=== PATIENT | male | born 1945 | race Caucasian/White ===

== ENCOUNTER 2017-06-02 14:10 | Inpatient (IN) | payer OTHER, BC ==
--- NOTE | 2017-06-02 14:31 | PDOC ---
History of Present Illness - General Stated Complaint: Syncope/Near Syncope Time Seen by Provider: 06/02/17 14:28 - History of Present Illness Initial Comments: 71 yo M with h/o HTN, IVDA, and methadone use ( 30+ ) years who arrives with syncopal event. Patient experienced episode of lightheadedness one hour [employer]. Reports sitting down and feeling nauseas with two episodes of non biliary, non bloody emesis, and diaphoresis prior to experiencing unwitnessed "fainting episode," with LOC. Daughter reports pt. falling through the table and foaming out the mouth, when his sister walked in the room and saw him laying on the floor. Does not recall duration of LOC. Reports waking up with cont'd nasuea. Denies excitement, startle response, increased heart rate, or neck constriction prior to event.Denies precipitating factors or alleviating factors. Denies F/C, CP, cough, palpitations, SOB, vertigo,vision change, RAMIREZ, weakness, sensory changes, urinary complaints, BPR, diarrhea, constipation, or abdominal pain. Tobacco use 30+ years (1/2 ppd), but reports smoking cessation 3 months ago. Denies alcohol use or IV drug use, although family reports pt. lives alone and continues to use IV drugs. Patient tachycardic at bedside, but denies h/o DVT/PE , leg pain, leg swelling, hemoptysis, pleuritic chest pain, recent travel/ immobilization, h/o malignancy, recent trauma or surgery, coagulopathy. Past History - Past Medical History Allergies/Adverse Reactions: Allergies Allergy/AdvReac Type Severity Reaction Status Date / Time No Known Allergies Allergy Verified 06/02/17 14:34 Home Medications: Ambulatory Orders Methadone [Dolophine -] 50 mg PO DAILY 04/14/16 HTN: Yes - Suicide/Smoking/Psychosocial Hx Smoking History: Current every day smoker Have you smoked in the past 12 months: Yes Number of Cigarettes Smoked Daily: 10 'Breaking Loose' booklet given: 04/14/16 Hx Alcohol Use: No Drug/Substance Use Hx: Yes (HEROIN) Substance Use Type: Heroin Review of Systems - Review of Systems Comments:: 06/02/17 14:31 GENERAL/CONSTITUTIONAL: No fever or chills. No weakness. HEAD, EYES, EARS, NOSE AND THROAT: No change in vision. No ear pain or discharge. No sore throat.- CARDIOVASCULAR: No chest pain or shortness of breath RESPIRATORY: No cough, wheezing, or hemoptysis. GASTROINTESTINAL: + nausea, without vomiting. No diarrhea or constipation. GENITOURINARY: No dysuria, frequency, or change in urination. MUSCULOSKELETAL: No joint or muscle swelling or pain. No neck or back pain. SKIN: No rash NEUROLOGIC: + lightheadedness. No headache, vertigo, loss of consciousness, or change in strength/sensation. ENDOCRINE: No increased thirst. No abnormal weight change HEMATOLOGIC/LYMPHATIC: No anemia, easy bleeding, or history of blood clots. ALLERGIC/IMMUNOLOGIC: No hives or skin allergy. *Physical Exam - Physical Exam Comments: 06/02/17 14:31 GENERAL: Awake, alert, and fully oriented, in no acute distress HEAD: No signs of trauma, normocephalic, atraumatic EYES: Miotic/pinpoint pupils BL. EOMI, sclera anicteric, conjunctiva clear ENT: Auricles normal inspection, hearing grossly normal, nares patent, oropharynx clear without exudates. Moist mucosa NECK: Normal ROM, supple, no lymphadenopathy, JVD, or masses LUNGS: Diminished breath sounds at lung bases. No distress, speaks full sentences, clear to auscultation bilaterally HEART: irregular rate and rhythm, normal S1 and S2, no murmurs, rubs or gallops , peripheral pulses normal and equal bilaterally. ABDOMEN: Soft, nontender, normoactive bowel sounds. No guarding, no rebound. No masses EXTREMITIES : LE edema ( trace) Normal inspection, Normal range of motion. No clubbing or cyanosis. NEUROLOGICAL: Cranial nerves II through XII grossly intact. Normal speech, gait not assessed, no focal sensorimotor deficits SKIN: Warm, Dry, normal turgor, no rashes or lesions noted. ED Treatment Course - LABORATORY CBC & Chemistry Diagram: 06/02/17 15:20 06/02/17 15:20 Medical Decision Making - Medical Decision Making 06/02/17 15:19 71 yo M with h/o HTN, IVDA, and methadone use ( 30+ ) years who arrives EMS with syncopal event one hour [employer]. Reports sitting down and feeling nasueas with two episodes of non biliary, non bloody emesis, and diaphoresis prior to experiencing unwitnessed "fainting episode," with LOC. Pt. sister reports walking in room with patient laying on floor and foaming out of mouth. Patient denies urinary incontinence, tongue biting, or convulsions. Does not recall duration of LOC. Reports waking up with cont'd nausea.Denies precipitating factors or alleviating factors. Denies F/C, CP, cough, palpitations, SOB, vertigo,vision change, RAMIREZ, weakness, sensory changes, urinary complaints, BPR, diarrhea, constipation, or abdominal pain. Tobacco use 30+ years (1/2 ppd), but reports smoking cessation 3 months ago. Denies alcohol use or IV drug use. Patient tachycardic at bedside~120. Physical exam reveals increased HR~116 and pinpoint pupils. Patient with sinus tachycardia, but denies h/o DVT/PE, leg pain , leg swelling, hemoptysis, pleuritic chest pain, recent travel/immobilization, h/o malignancy, recent trauma or surgery, coagulopathy. Low-mod risk PE. Will also consider hyperthyroidism given s/s. Possible polysubstance abuse. Will also assess for causes of seizure vs. cardiogenic cause of syncope, such as underlying arrythmia. ED Course: CBC, CMP, PT/INR, UA, Urine Tox, D-Dimer, TSH EKG, CXR CT HEAD, CT C-SPINE Zofran, Pepcid, NS EKG: Sinus tachycardia with absent ROSALVA, STD, or TWI. No interval duration change or axis deviation. 06/02/17 15:43 Pt. refuses 1L NS, and refuses blood draw for alcohol. Patient repeatedly states he is going home. 1600 Patient actively Tonic Clonic seizing lasting more than 5 minutes . 1 mg Ativan given. Aborted seizure. Pt. lethargic 06/02/17 16:24 D-Dimer: 6681 UA: neg 06/02/17 16:25 Glucose 116 CK 217 06/02/17 16:28 06/02/17 16:48 CT HEAD: No acute intracranial pathology Pt. more arousable. CXR: No acute dz. 1 mg ativan 06/02/17 17:11 Alcohol less than 5.0 Utox: + Methadone. 06/02/17 17:21 Levofloxacin 800 mg. CTA: RUL infiltrate, aspiration. 06/02/17 17:50 Patient admitted to med/surg inpt. [facility] *DC/Admit/Observation/Transfer Diagnosis at time of Disposition: Seizure - Discharge Dispostion Condition at time of disposition: Stable Admit: Yes - Referrals - Patient Instructions - Post Discharge Activity
--- NOTE | 2017-06-02 15:05 | PDOC ---
Attending Attestation - Resident Resident Name: Arun Lee - ED Attending Attestation I have performed the following: I have examined & evaluated the patient, The case was reviewed & discussed with the resident, I agree w/resident's findings & plan, Exceptions are as noted - Critical Care Time Total Critical Care Time: 30 Critical Care Statement: The care of this patient involved high complexity decision making to prevent further life threatening deterioration of the patient 's condition and/or to evaluate & treat vital organ system(s) failure or risk of failure. - Medical Decision Making 06/02/17 15:05 I, Dr. Christina Cheema, DO, attest that this document has been prepared under my direction and personally reviewed by me in its entirety. I further attest, that it accurately reflects all work, treatment, procedures and medical decision -making performed by me. 06/02/17 15:40 a/p: 71yo male with syncope and vomiting x 2 -concern given syncopal episode, lightheaded feeling, and n/v x 2 -will check labs, trops, dimer, ekg, cxr, lipase on methadone hx of ivda denies taking any meds other than his methadone c/o nausea at this time will medicate, give ivf hydration pt already stating he wants to sign out AMA and leave agreeable to stay for labs per the daughters discussion with the resident, pt has a hx of signing out AMA from ERs 06/02/17 16:05 pt with seizure episode in the ED ativan given stat to head ct <Christina Cheema - Last Filed: 06/02/17 16:05> - HPI HPI: 06/02/17 17:23 Patient is a 71 year old male with a significant past medical history of HTN, Alcohol dependence, substance abuse, who presents to the ED with complaints of weakness, s/p syncope that occured 1 hour prior to ED arrival. Patient reports feeling nauseous suddenly this afternoon while at home. He reports experiencing 2 episodes of vomiting before experiencing an episode of unwitnessed fainting with loss of consciousness. Patient does not recall if he hit his head secondary to fainting episode and is unaware of how long he was unconsciousness. He reports daughter called EMS to have him taken to the ED for further evaluation. Denies chest pain, Sob. Denies nausea, vomiting. Denies fevers, chills. Denies blurred vision, headache. Denies any other symptoms. Allergies: None Social history: Current smoker. Current drinker. Former Heroin use. Surgical history: None PMD: None - Physicial Exam PE: 06/02/17 17:23 GENERAL: Awake, alert, and fully oriented, in no acute distress HEAD: No signs of trauma EYES: +Extraocular motion makes light headed PERRLA, EOMI, sclera anicteric, conjunctiva clear ENT: Auricles normal inspection, hearing grossly normal, nares patent, oropharynx clear without exudates. Moist mucosa NECK: Normal ROM, supple, no lymphadenopathy, JVD, or masses LUNGS: +Lung sounds diminished in bases bilaterally. Breath sounds equal,. No wheezes, and no crackles HEART: +Tachycardic. normal S1 and S2, no murmurs, rubs or gallops ABDOMEN: +Abdomen palpation reproduces nausea. Soft, nontender, normoactive bowel sounds. No guarding, no rebound. No masses EXTREMITIES: +Trace edema in lower extremities bilaterally. Normal range of motion,. No clubbing or cyanosis. No cords, erythema, or tenderness NEUROLOGICAL: Cranial nerves II through XII grossly intact. Normal speech, normal gait SKIN: Warm, Dry, normal turgor, no rashes or lesions noted. - Medical Decision Making 06/02/17 17:23 Documentation prepared by Pascual Hough, acting as medical microbiologist for Christina Cheema DO, MD/. <Pascual Hough - Last Filed: 06/02/17 17:23> Heart Score/ECG Review - ECG Intrepretation Comment:: 06/02/17 15:44 pt with seizure activity in the ED given ativan 1mg tonic clonic seizure frothing at the mouth stat to head ct <Christina Cheema - Last Filed: 06/02/17 16:05>
[2017-06-02 15:31] LABS: URINE APPEARANCE CLEAR; URINE BILIRUBIN NEGATIVE (NEGATIVE); URINE BLOOD 1+ (NEGATIVE); URINE COLOR STRAW; URINE GLUCOSE (UA) NEGATIVE (NEGATIVE); URINE KETONE NEGATIVE (NEGATIVE); URINE LEUK ESTERASE NEGATIVE (NEGATIVE); URINE NITRITE NEGATIVE (NEGATIVE); URINE PROTEIN NEGATIVE (NEGATIVE); URINE UROBILINOGEN NEGATIVE mg/dL (0.2-1.0)
[2017-06-02 15:31] LABS: BASO % 0.3 % (0-2.0); EOS % 0.4 % (0-4.5); HEMATOCRIT 46.2 % (35.4-49); HEMOGLOBIN 15.5 GM/dL (11.7-16.9); LYMPH % 3.5 % (8-40); MCH 31.2 pg (25.7-33.7); MCHC 33.6 g/dl (32.0-35.9); MEAN CELL VOLUME 92.9 fl (80-96); MEAN PLT VOLUME 7.3 fl (7.5-11.1); MONO % 6.4 % (3.8-10.2); NEUT % 89.4 % (42.8-82.8); PLATELET COUNT 202 K/MM3 (134-434); RBC 4.97 M/mm3 (4.00-5.60); WHITE BLOOD COUNT 9.7 K/mm3 (4.0-10.0)
[2017-06-02] MEDS ORDERED: ONDANSETRON 4 MG/2 ML VIAL IVPUSH ONE (15:34)
[2017-06-02] MEDS ORDERED: SODIUM CHLORIDE 0.9% 1000 ML INFUS.BAG IV ONE ×2 (15:34→16:23)
[2017-06-02] MEDS ORDERED: FAMOTIDINE 20 MG/50 ML IVPB 20 MG/50 ML MG IVPB ONE ×2 (15:34→15:40)
[2017-06-02] MEDS ORDERED: ONDANSETRON 4 MG/2 ML VIAL ONE (15:40)
[2017-06-02 15:42] LABS: COCAINE, UR NEGATIVE ng/ml (CUTOFF=300); OPIATES, URI NEGATIVE ng/ml (CUTOFF=300); PHENCYCLIDINE,URINE NEGATIVE ng/ml (CUTOFF=25); URINE AMPHETAMINES NEGATIVE ng/ml (CUTOFF=500); URINE BARBITURATES NEGATIVE ng/ml (CUTOFF=200); URINE BENZODIAZEPINES NEGATIVE ng/ml (CUTOFF=200)
[2017-06-02 15:43] LABS: METHADONE, UR POSITIVE ng/ml (CUTOFF=300)
[2017-06-02 15:44] LABS: INR 1.02 (0.82-1.09); PROTHROMBIN TIME (PATIENT) 11.5 SEC (9.98-11.88)
[2017-06-02 15:45] LABS: URINE HYALINE CAST 3 /lpf; URINE MUCUS RARE
[2017-06-02 15:50] LABS: CHLORIDE 101 mmol/L (98-107); POTASSIUM 3.8 mmol/L (3.5-5.1); SODIUM 138 mmol/L (136-145)
[2017-06-02 15:59] LABS: ALBUMIN 4.1 g/dl (3.4-5.0); ANION GAP 13 (8-16); BILIRUBIN,TOTAL 0.7 mg/dL (0.2-1.0); BLOOD UREA NITROGEN 15 mg/dL (7-18); CALCIUM 8.5 mg/dL (8.5-10.1); CO2 24 mmol/L (21-32); CREATININE 1.1 mg/dL (0.7-1.3); GLUCOSE,RANDOM 116 mg/dL (74-106); SGOT/AST 19 U/L (15-37); SGPT/ALT 27 U/L (12-78); TOT PROT 7.1 g/dl (6.4-8.2)
[2017-06-02] MEDS ORDERED: HEMOQUE TEST 1 EACH EACH ONE (15:59)
[2017-06-02 16:08] LABS: ALK PHOS 97 U/L (45-117)
--- NOTE | 2017-06-02 19:06 | HP ---
CHIEF COMPLAINT: Syncope PCP: None HISTORY OF PRESENT ILLNESS: 71 year-old male with a PMH significant for HTN, IVDA, and methadone dependency x 30 years, who presented to the ED for evaluation for a syncopal episode that occurred one hour prior to arrival. Patient reported sitting down and feeling nauseous with two episodes of non biliary, non bloody emesis. He was also diaphoretic. He then lost consciousness. Patient's sister found patient on the floor "foaming at the mouth." On arrival to ED, patient was tachycardic to 116 with pinpoint pupils. About 45 minutes after arrival, tonic-clonic seizure activity was observed lasting more than 5 minutes. Ativan 1mg x 1 was administered and the seizure aborted. At the time of admission, patient's family was not present to provide history and this information is taken from the chart. Patient adamantly denies alcohol use or IV drug use for the past three years. ER course was notable for: (1) CT head: no acute pathology (2) Ativan 1mg x 2; NS 1L x 2; levofloxacin 750mg x 1 (risk of aspiration pneumonia) Recent Travel: No PAST MEDICAL HISTORY: Hypertension IVDA Methadone dependency PAST SURGICAL HISTORY: None reported Social History: Smoking: quit 3 months ago; 30+ years Alcohol: denies Drugs: patient says last IV drug use (skin popping heroin) was 3 years ago; family says actively using Family History: Allergies No Known Allergies Allergy (Verified 06/02/17 14:34) HOME MEDICATIONS: Home Medications Medication Instructions Recorded Methadone [Dolophine -] 50 mg PO DAILY 04/14/16 REVIEW OF SYSTEMS CONSTITUTIONAL: Absent: fever, chills, diaphoresis, generalized weakness, malaise, loss of appetite, weight change HEENT: Absent: rhinorrhea, nasal congestion, throat pain, throat swelling, difficulty swallowing, mouth swelling, ear pain, eye pain, visual changes CARDIOVASCULAR: Absent: chest pain, syncope, palpitations, irregular heart rate, lightheadedness , peripheral edema RESPIRATORY: Absent: cough, shortness of breath, dyspnea with exertion, orthopnea, wheezing, stridor, hemoptysis GASTROINTESTINAL: Absent: abdominal pain, abdominal distension, nausea, vomiting, diarrhea, constipation, melena, hematochezia GENITOURINARY: Absent: dysuria, frequency, urgency, hesitancy, hematuria, flank pain, genital pain MUSCULOSKELETAL: Absent: myalgia, arthralgia, joint swelling, back pain, neck pain SKIN: Absent: rash, itching, pallor HEMATOLOGIC/IMMUNOLOGIC: Absent: easy bleeding, easy bruising, lymphadenopathy, frequent infections ENDOCRINE: Absent: unexplained weight gain, unexplained weight loss, heat intolerance, cold intolerance NEUROLOGIC: Absent: headache, focal weakness or paresthesias, dizziness, unsteady gait, seizure, mental status changes, bladder or bowel incontinence PSYCHIATRIC: Absent: anxiety, depression, suicidal or homicidal ideation, hallucinations. PHYSICAL EXAMINATION Vital Signs - 24 hr 06/02/17 06/02/17 06/02/17 14:30 14:47 15:39 Temperature 99.4 F Pulse Rate 124 H Pulse Rate [ 120 H Apical] Respiratory 20 18 Rate Blood Pressure 142/88 Blood Pressure 136/77 [Right Arm] O2 Sat by Pulse 95 95 95 Oximetry (%) 06/02/17 06/02/17 16:30 18:01 Temperature Pulse Rate Pulse Rate [ 120 H 120 H Apical] Respiratory 18 20 Rate Blood Pressure Blood Pressure 128/77 134/82 [Right Arm] O2 Sat by Pulse 98 98 Oximetry (%) GENERAL: Somnolent, arousable for brief periods. HEAD: Normal with no signs of trauma. EYES: Pupils equal, round and reactive to light, extraocular movements intact, sclera anicteric, conjunctiva clear. No lid lag. EARS, NOSE, THROAT: Ears normal, nares patent, oropharynx clear without exudates. Moist mucous membranes. NECK: Normal range of motion, supple without lymphadenopathy, JVD, or masses. LUNGS: Breath sounds equal, clear to auscultation bilaterally. No wheezes, and no crackles. No accessory muscle use. HEART: Regular rate and rhythm, normal S1 and S2 ABDOMEN: Soft, nontender, not distended, hypoactive bowel sounds, no guarding, no rebound UPPER EXTREMITIES: 2+ pulses, warm, well-perfused. No cyanosis. No clubbing. No peripheral edema. LOWER EXTREMITIES: 2+ pulses, warm, well-perfused. No calf tenderness. No peripheral edema. NEUROLOGICAL: Unable to assess due to somnolence Laboratory Results - last 24 hr 06/02/17 06/02/17 06/02/17 15:06 15:06 15:15 WBC RBC Hgb Hct MCV MCH MCHC RDW Plt Count MPV Neutrophils % Lymphocytes % Monocytes % Eosinophils % Basophils % PT with INR INR D-Dimer 6681 H Sodium Potassium Chloride Carbon Dioxide Anion Gap BUN Creatinine Creat Clearance w eGFR POC Glucometer Random Glucose Lactic Acid Calcium Total Bilirubin AST ALT Alkaline Phosphatase Creatine Kinase Creatine Kinase Index CK-MB (CK-2) Troponin I Total Protein Albumin TSH Urine Color Straw Urine Appearance Clear Urine pH 5.0 D Ur Specific [place] 1.012 Urine Protein Negative Urine Glucose (UA) Negative Urine Ketones Negative Urine Blood 1+ H Urine Nitrite Negative Urine Bilirubin Negative Urine Urobilinogen Negative Ur Leukocyte Esterase Negative Urine WBC (Auto) None Urine RBC (Auto) 1 Hyaline Casts 3 Urine Mucus Rare Opiates Screen Negative Methadone Screen Positive Barbiturate Screen Negative Phencyclidine Screen Negative Ur Amphetamines Screen Negative MDMA (Ecstasy) Screen Negative Benzodiazepines Screen Negative Cocaine Screen Negative U Marijuana (THC) Screen Negative Alcohol, Quantitative Blood Type Antibody Screen 06/02/17 06/02/17 06/02/17 15:20 15:20 15:20 WBC 9.7 D RBC 4.97 Hgb 15.5 Hct 46.2 MCV 92.9 MCH 31.2 MCHC 33.6 RDW 13.0 Plt Count 202 D MPV 7.3 L Neutrophils % 89.4 H Lymphocytes % 3.5 L Monocytes % 6.4 Eosinophils % 0.4 Basophils % 0.3 PT with INR 11.50 INR 1.02 D-Dimer Sodium 138 Potassium 3.8 Chloride 101 Carbon Dioxide 24 Anion Gap 13 BUN 15 Creatinine 1.1 Creat Clearance w eGFR > 60 POC Glucometer Random Glucose 116 H Lactic Acid Calcium 8.5 Total Bilirubin 0.7 AST 19 ALT 27 Alkaline Phosphatase 97 Creatine Kinase 217 Creatine Kinase Index 1.2 CK-MB (CK-2) 2.657 Troponin I 0.04 Total Protein 7.1 Albumin 4.1 TSH 0.84 Urine Color Urine Appearance Urine pH Ur Specific [place] Urine Protein Urine Glucose (UA) Urine Ketones Urine Blood Urine Nitrite Urine Bilirubin Urine Urobilinogen Ur Leukocyte Esterase Urine WBC (Auto) Urine RBC (Auto) Hyaline Casts Urine Mucus Opiates Screen Methadone Screen Barbiturate Screen Phencyclidine Screen Ur Amphetamines Screen MDMA (Ecstasy) Screen Benzodiazepines Screen Cocaine Screen U Marijuana (THC) Screen Alcohol, Quantitative Blood Type Antibody Screen 06/02/17 06/02/17 06/02/17 15:20 15:25 16:00 WBC RBC Hgb Hct MCV MCH MCHC RDW Plt Count MPV Neutrophils % Lymphocytes % Monocytes % Eosinophils % Basophils % PT with INR INR D-Dimer Sodium Potassium Chloride Carbon Dioxide Anion Gap BUN Creatinine Creat Clearance w eGFR POC Glucometer 128.39675 Random Glucose Lactic Acid Calcium Total Bilirubin AST ALT Alkaline Phosphatase Creatine Kinase Creatine Kinase Index CK-MB (CK-2) Troponin I Total Protein Albumin TSH Cancelled Urine Color Urine Appearance Urine pH Ur Specific [place] Urine Protein Urine Glucose (UA) Urine Ketones Urine Blood Urine Nitrite Urine Bilirubin Urine Urobilinogen Ur Leukocyte Esterase Urine WBC (Auto) Urine RBC (Auto) Hyaline Casts Urine Mucus Opiates Screen Methadone Screen Barbiturate Screen Phencyclidine Screen Ur Amphetamines Screen MDMA (Ecstasy) Screen Benzodiazepines Screen Cocaine Screen U Marijuana (THC) Screen Alcohol, Quantitative Blood Type O POSITIVE Antibody Screen Negative 06/02/17 06/02/17 16:25 17:30 WBC RBC Hgb Hct MCV MCH MCHC RDW Plt Count MPV Neutrophils % Lymphocytes % Monocytes % Eosinophils % Basophils % PT with INR INR D-Dimer Sodium Potassium Chloride Carbon Dioxide Anion Gap BUN Creatinine Creat Clearance w eGFR POC Glucometer Random Glucose Lactic Acid 3.2 H* Calcium Total Bilirubin AST ALT Alkaline Phosphatase Creatine Kinase Creatine Kinase Index CK-MB (CK-2) Troponin I Total Protein Albumin TSH Urine Color Urine Appearance Urine pH Ur Specific [place] Urine Protein Urine Glucose (UA) Urine Ketones Urine Blood Urine Nitrite Urine Bilirubin Urine Urobilinogen Ur Leukocyte Esterase Urine WBC (Auto) Urine RBC (Auto) Hyaline Casts Urine Mucus Opiates Screen Methadone Screen Barbiturate Screen Phencyclidine Screen Ur Amphetamines Screen MDMA (Ecstasy) Screen Benzodiazepines Screen Cocaine Screen U Marijuana (THC) Screen Alcohol, Quantitative < 5.0 Blood Type Antibody Screen ASSESSMENT/PLAN: 71 year-old male with a PMH significant for HTN, IVDA, and methadone dependency. Seizure --witnessed tonic-clonic activty in ED --unclear if this is a seizure provoked by alcohol or drug use; serum alcohol level is negative and utox is positive only for methadone; patient denies alcohol or IVDU for past 3 years --this may be a first-time seizure --ativan PRN --neurology consult IV Heroin abuse Methadone dependency --will need to verify methadone provider and dose Alcohol abuse --start librium taper Multilobar pneumonia --infiltrates seen on CT --possible aspiration --alley pearson --ID consult Visit type - Emergency Visit Emergency Visit: Yes ED Registration Date: 06/02/17 Care time: The patient presented to the Emergency Department on the above date and was hospitalized for further evaluation of their emergent condition. - New Patient This patient is new to me today: Yes Date on this admission: 06/03/17 - Critical Care Critical Care patient: No
[2017-06-02] MEDS ORDERED: chlordiazePOXIDE HCL 25 MG CAPSULE PO PRN (19:23)
[2017-06-02] MEDS ORDERED: chlordiazePOXIDE HCL 25 MG CAPSULE PO ONE (19:23)
[2017-06-02] MEDS ORDERED: LORazepam 2 MG/ML SDV VIAL IVPUSH ONE (19:30)
[2017-06-02] MEDS ORDERED: DEXTROSE 5%-NORMAL SALINE 1,000 ML IV SCH (19:30)
[2017-06-02] MEDS ORDERED: LORazepam 2 MG/ML SDV VIAL ONE (20:49)
[2017-06-02] MEDS ORDERED: chlordiazePOXIDE HCL 25 MG CAPSULE ONE (20:50)
[2017-06-02] MEDS ORDERED: VANCOMYCIN 1,250 MG in DEXTROSE 5%-WATER - 250 ML IVPB ONE (22:30)
[2017-06-02] MEDS ORDERED: PANTOPRAZOLE 40 MG TABLET (FP) ONE (22:44)
[2017-06-02] MEDS ORDERED: PIPERACILLIN/TAZOB 3.375 GM 3.375 GM/50 ML BAG IVPB ONE (22:45)
[2017-06-02] MEDS: PANTOPRAZOLE 40 MG TABLET (FP) PO SCH (22:57)
[2017-06-02] MEDS: PIPERACILLIN/TAZOB 3.375 GM 3.375 GM in DEXTROSE 5%-WATER - 100 ML IVPB SCH (22:57)
[2017-06-03] MEDS ORDERED: chlordiazePOXIDE HCL 25 MG CAPSULE ONE (00:10)
[2017-06-03] MEDS: chlordiazePOXIDE HCL 25 MG CAPSULE PO SCH ×3 (00:13→10:17)
--- NOTE | 2017-06-03 01:17 | FALL ---
Fall Exam - Event Witnessed fall: No Location of Fall: ED Fall from: Stretcher - Pre-Fall Fall Risk: At Risk Mental Status: Lethargic Current Medications: Current Medications Generic Name Dose Route Start Last Admin Trade Name Freq PRN Reason Stop Dose Admin Chlordiazepoxide HCl 50 mg 06/02/17 23:00 06/03/17 00:13 Librium - PO 06/03/17 17:01 50 mg [id number] ROXANNE Administration Chlordiazepoxide HCl 25 mg 06/03/17 23:00 Librium - PO 06/04/17 17:01 [id number] ROXANNE Chlordiazepoxide HCl 15 mg 06/04/17 23:00 Librium - PO 06/05/17 17:01 [id number] ROXANNE Chlordiazepoxide HCl 25 mg 06/02/17 19:23 Librium - PO 06/05/17 19:22 Q4H PRN WITHDRAWAL(CONT SUBST) Folic Acid 1 mg 06/03/17 10:00 Folic Acid - PO DAILY ROXANNE Dextrose/Sodium Chloride 1,000 mls @ 83 mls/hr 06/02/17 19:30 06/02/17 21:39 D5-Ns - IV 83 mls/hr ASDIR ROXANNE Administration Vancomycin HCl 1,250 mg/ 250 mls @ 250 mls/hr 06/02/17 22:30 Dextrose IVPB BID [facility] Protocol Piperacillin Sod/Tazobactam 100 mls @ 200 mls/hr 06/02/17 22:30 06/02/17 22: 57 Sod 3.375 gm/ Dextrose IVPB 06/03/17 02:29 200 mls/hr Q8H-IV ROXANNE Administration Methadone HCl 50 mg 06/03/17 06:00 Dolophine - PO DAILY@0600 ROXANNE Pantoprazole Sodium 40 mg 06/02/17 22:00 06/02/17 22:57 Protonix - PO 40 mg BID ROXANNE Administration Piperacillin/Tazobactam/Dextrose 3.375 gm 06/02/17 22:30 Zosyn 3.375gm Ivpb (Premix) IVPB Q8H-IV ROXANNE Thiamine HCl 100 mg 06/03/17 10:00 Vitamin B1 - PO DAILY ROXANNE - Post-Fall Patient Outcome: No Injury Exam Findings: Pt is lethargic, but arousable to verbal, tactile stimulus. HEENT : Atraumatic, Normocephalic. PERRL, Treatment: None Vital Signs: Vital Signs Temperature 98.9 F 06/02/17 19:22 Pulse Rate 110 H 06/02/17 19:22 Respiratory Rate 18 06/02/17 19:22 Blood Pressure 128/88 06/02/17 19:22 O2 Sat by Pulse Oximetry (%) 98 06/02/17 19:22 LOC Post-Fall: Unchanged Identify factors for HIGH RISK for Head Injury: Alcoholic pt w liver dysf
[2017-06-03] MEDS: PIPERACILLIN/TAZOB 3.375 GM 3.375 GM in DEXTROSE 5%-WATER - 100 ML IVPB SCH (02:53)
[2017-06-03 05:01] VITALS: BMI 28.7
[2017-06-03] MEDS ORDERED: METHADONE 40 MG, METHADONE 10 MG PO ONE (06:00)
[2017-06-03] MEDS ORDERED: METHADONE HCL 10 MG TABLET ONE (06:20)
[2017-06-03] MEDS ORDERED: METHADONE HCL 40 MG DISPERSABLE TABLET ONE (06:20)
--- NOTE | 2017-06-03 08:05 | PN ---
Physical Exam: SUBJECTIVE: Patient seen and examined. Wants to sign out AMA. Has refused librium. Has refused morning dose of methadone. Says he wants to go to his methadone program this morning but cannot name the methadone center or the street that it is on. Overnight in ED patient got out of bed and fell (see fall exam). OBJECTIVE: Vital Signs Period Temp Pulse Resp BP Sys/Sun Pulse Ox Last 24 Hr 97.2 F-99.4 F 76-124 18-20 128-154/64-88 95-98 GENERAL: The patient is somnolent. Speech is coherent but mumbled. Falls asleep while talking. LUNGS: +cough; scattered rhonchi HEART: Regular rate and rhythm, S1, S2 ABDOMEN: Soft, nontender, nondistended, normoactive bowel sounds, no guarding, no rebound, no hepatosplenomegaly, no masses. EXTREMITIES: 2+ pulses, warm, well-perfused, no edema. NEUROLOGICAL: Cranial nerves II through XII grossly intact. Normal speech, gait not observed. PSYCH: Normal mood, normal affect. SKIN: Warm, dry, normal turgor, no rashes or lesions noted Laboratory Results - last 24 hr 06/02/17 06/02/17 06/02/17 15:06 15:06 15:15 WBC RBC Hgb Hct MCV MCH MCHC RDW Plt Count MPV Neutrophils % Lymphocytes % Monocytes % Eosinophils % Basophils % PT with INR INR D-Dimer 6681 H Sodium Potassium Chloride Carbon Dioxide Anion Gap BUN Creatinine Creat Clearance w eGFR POC Glucometer Random Glucose Lactic Acid Calcium Total Bilirubin AST ALT Alkaline Phosphatase Creatine Kinase Creatine Kinase Index CK-MB (CK-2) Troponin I Total Protein Albumin TSH Urine Color Straw Urine Appearance Clear Urine pH 5.0 D Ur Specific [place] 1.012 Urine Protein Negative Urine Glucose (UA) Negative Urine Ketones Negative Urine Blood 1+ H Urine Nitrite Negative Urine Bilirubin Negative Urine Urobilinogen Negative Ur Leukocyte Esterase Negative Urine WBC (Auto) None Urine RBC (Auto) 1 Hyaline Casts 3 Urine Mucus Rare Opiates Screen Negative Methadone Screen Positive Barbiturate Screen Negative Phencyclidine Screen Negative Ur Amphetamines Screen Negative MDMA (Ecstasy) Screen Negative Benzodiazepines Screen Negative Cocaine Screen Negative U Marijuana (THC) Screen Negative Alcohol, Quantitative Blood Type Antibody Screen 06/02/17 06/02/17 06/02/17 15:20 15:20 15:20 WBC 9.7 D RBC 4.97 Hgb 15.5 Hct 46.2 MCV 92.9 MCH 31.2 MCHC 33.6 RDW 13.0 Plt Count 202 D MPV 7.3 L Neutrophils % 89.4 H Lymphocytes % 3.5 L Monocytes % 6.4 Eosinophils % 0.4 Basophils % 0.3 PT with INR 11.50 INR 1.02 D-Dimer Sodium 138 Potassium 3.8 Chloride 101 Carbon Dioxide 24 Anion Gap 13 BUN 15 Creatinine 1.1 Creat Clearance w eGFR > 60 POC Glucometer Random Glucose 116 H Lactic Acid Calcium 8.5 Total Bilirubin 0.7 AST 19 ALT 27 Alkaline Phosphatase 97 Creatine Kinase 217 Creatine Kinase Index 1.2 CK-MB (CK-2) 2.657 Troponin I 0.04 Total Protein 7.1 Albumin 4.1 TSH 0.84 Urine Color Urine Appearance Urine pH Ur Specific [place] Urine Protein Urine Glucose (UA) Urine Ketones Urine Blood Urine Nitrite Urine Bilirubin Urine Urobilinogen Ur Leukocyte Esterase Urine WBC (Auto) Urine RBC (Auto) Hyaline Casts Urine Mucus Opiates Screen Methadone Screen Barbiturate Screen Phencyclidine Screen Ur Amphetamines Screen MDMA (Ecstasy) Screen Benzodiazepines Screen Cocaine Screen U Marijuana (THC) Screen Alcohol, Quantitative Blood Type Antibody Screen 06/02/17 06/02/17 06/02/17 15:20 15:25 16:00 WBC RBC Hgb Hct MCV MCH MCHC RDW Plt Count MPV Neutrophils % Lymphocytes % Monocytes % Eosinophils % Basophils % PT with INR INR D-Dimer Sodium Potassium Chloride Carbon Dioxide Anion Gap BUN Creatinine Creat Clearance w eGFR POC Glucometer 128.40312 Random Glucose Lactic Acid Calcium Total Bilirubin AST ALT Alkaline Phosphatase Creatine Kinase Creatine Kinase Index CK-MB (CK-2) Troponin I Total Protein Albumin TSH Cancelled Urine Color Urine Appearance Urine pH Ur Specific [place] Urine Protein Urine Glucose (UA) Urine Ketones Urine Blood Urine Nitrite Urine Bilirubin Urine Urobilinogen Ur Leukocyte Esterase Urine WBC (Auto) Urine RBC (Auto) Hyaline Casts Urine Mucus Opiates Screen Methadone Screen Barbiturate Screen Phencyclidine Screen Ur Amphetamines Screen MDMA (Ecstasy) Screen Benzodiazepines Screen Cocaine Screen U Marijuana (THC) Screen Alcohol, Quantitative Blood Type O POSITIVE Antibody Screen Negative 06/02/17 06/02/17 06/02/17 16:25 17:30 22:19 WBC RBC Hgb Hct MCV MCH MCHC RDW Plt Count MPV Neutrophils % Lymphocytes % Monocytes % Eosinophils % Basophils % PT with INR INR D-Dimer Sodium Potassium Chloride Carbon Dioxide Anion Gap BUN Creatinine Creat Clearance w eGFR POC Glucometer Random Glucose Lactic Acid 3.2 H* 1.4 Calcium Total Bilirubin AST ALT Alkaline Phosphatase Creatine Kinase Creatine Kinase Index CK-MB (CK-2) Troponin I Total Protein Albumin TSH Urine Color Urine Appearance Urine pH Ur Specific [place] Urine Protein Urine Glucose (UA) Urine Ketones Urine Blood Urine Nitrite Urine Bilirubin Urine Urobilinogen Ur Leukocyte Esterase Urine WBC (Auto) Urine RBC (Auto) Hyaline Casts Urine Mucus Opiates Screen Methadone Screen Barbiturate Screen Phencyclidine Screen Ur Amphetamines Screen MDMA (Ecstasy) Screen Benzodiazepines Screen Cocaine Screen U Marijuana (THC) Screen Alcohol, Quantitative < 5.0 Blood Type Antibody Screen Active Medications Generic Name Dose Route Start Last Admin Trade Name Freq PRN Reason Stop Dose Admin Chlordiazepoxide HCl 50 mg 06/02/17 23:00 06/03/17 07:55 Librium - PO 06/03/17 17:01 Not Given [id number] ROXANNE Chlordiazepoxide HCl 25 mg 06/03/17 23:00 Librium - PO 06/04/17 17:01 [id number] ROXANNE Chlordiazepoxide HCl 15 mg 06/04/17 23:00 Librium - PO 06/05/17 17:01 [id number] ROXANNE Chlordiazepoxide HCl 25 mg 06/02/17 19:23 Librium - PO 06/05/17 19:22 Q4H PRN WITHDRAWAL(CONT SUBST) Folic Acid 1 mg 06/03/17 10:00 Folic Acid - PO DAILY [facility] Dextrose/Sodium Chloride 1,000 mls @ 83 mls/hr 06/02/17 19:30 06/02/17 21:39 [id number]-Ns - IV 83 mls/hr ASDIR ROXANNE Administration Vancomycin HCl 1,250 mg/ 250 mls @ 250 mls/hr 06/02/17 22:30 Dextrose IVPB BID [facility] Protocol Methadone HCl 50 mg 06/03/17 06:00 Dolophine - PO DAILY@0600 ROXANNE Pantoprazole Sodium 40 mg 06/02/17 22:00 06/02/17 22:57 Protonix - PO 40 mg BID ROXANNE Administration Piperacillin/Tazobactam/Dextrose 3.375 gm 06/02/17 22:30 Zosyn 3.375gm Ivpb (Premix) IVPB Q8H-IV ROXANNE Thiamine HCl 100 mg 06/03/17 10:00 Vitamin B1 - PO DAILY [facility] ASSESSMENT/PLAN:
[2017-06-03] MEDS ORDERED: CEFTRIAXONE 1 GM in DEXTROSE 5%-WATER - 50 ML IVPB SCH (10:00)
[2017-06-03] MEDS ORDERED: FOLIC ACID 1 MG TABLET (FP) PO SCH (10:00)
[2017-06-03] MEDS ORDERED: THIAMINE HCL 100 MG TABLET (FP) PO SCH (10:00)
[2017-06-03] MEDS ORDERED: METHADONE HCL 10 MG TABLET PO SCH (10:00)
--- NOTE | 2017-06-03 10:07 | CONSULT ---
Consult - text type - Consultation Consultation Note: Neurology History of Present Illness 71 yo M with h/o HTN, IVDA, and methadone use ( 30+ ) years who arrives with syncopal event. Patient experienced episode of lightheadedness one hour [employer]. Reported sitting down and feeling nauseas with two episodes of non biliary, non bloody emesis, and diaphoresis prior to experiencing unwitnessed "fainting episode," with LOC. Daughter reports pt. falling through the table and foaming out the mouth, when his sister walked in the room and saw him laying on the floor. Does not recall duration of LOC. Reported waking up with cont'd nasuea. Was brought to the hospital and Utox showed only methadone. Etoh was negative. CT head without acute changes. CT C spine reviwed and with interstitial infiltrates noted. Being managed with Librium and this AM was irritbale and wanted to go home. Past History - Past Medical History Allergies/Adverse Reactions: Allergies Allergy/AdvReac Type Severity Reaction Status Date / Time No Known Allergies Allergy Verified 06/02/17 14:34 Home Medications: Ambulatory Orders Methadone [Dolophine -] 50 mg PO DAILY 04/14/16 HTN: Yes - Suicide/Smoking/Psychosocial Hx Smoking History: Current every day smoker Have you smoked in the past 12 months: Yes Number of Cigarettes Smoked Daily: 10 'Breaking Loose' booklet given: 04/14/16 Hx Alcohol Use: No Drug/Substance Use Hx: Yes (HEROIN) Substance Use Type: Heroin Review of Systems GENERAL/CONSTITUTIONAL: No fever or chills. No weakness. HEAD, EYES, EARS, NOSE AND THROAT: No change in vision. No ear pain or discharge. No sore throat.- CARDIOVASCULAR: No chest pain or shortness of breath RESPIRATORY: No cough, wheezing, or hemoptysis. GASTROINTESTINAL: + nausea, without vomiting. No diarrhea or constipation. GENITOURINARY: No dysuria, frequency, or change in urination. MUSCULOSKELETAL: No joint or muscle swelling or pain. No neck or back pain. SKIN: No rash NEUROLOGIC: + lightheadedness. No headache, vertigo, loss of consciousness, or change in strength/sensation. ENDOCRINE: No increased thirst. No abnormal weight change HEMATOLOGIC/LYMPHATIC: No anemia, easy bleeding, or history of blood clots. ALLERGIC/IMMUNOLOGIC: No hives or skin allergy. *Physical Exam Vital Signs Temperature 98.7 F 06/03/17 04:50 Pulse Rate 89 06/03/17 04:50 Respiratory Rate 20 06/03/17 04:50 Blood Pressure 152/87 06/03/17 04:50 O2 Sat by Pulse Oximetry (%) 96 06/03/17 05:02 GENERAL: Awake, alert, and fully oriented, in no acute distress HEAD: No signs of trauma, normocephalic, atraumatic EYES: Miotic/pinpoint pupils BL. EOMI, sclera anicteric, conjunctiva clear ENT: Auricles normal inspection, hearing grossly normal, nares patent, oropharynx clear without exudates. Moist mucosa NECK: Normal ROM, supple, no lymphadenopathy, JVD, or masses LUNGS: Diminished breath sounds at lung bases. No distress, speaks full sentences, clear to auscultation bilaterally HEART: irregular rate and rhythm, normal S1 and S2, no murmurs, rubs or gallops , peripheral pulses normal and equal bilaterally. ABDOMEN: Soft, nontender, normoactive bowel sounds. No guarding, no rebound. No masses EXTREMITIES : LE edema ( trace) Normal inspection, Normal range of motion. No clubbing or cyanosis. NEUROLOGICAL: Cranial nerves II through XII grossly intact. Normal speech, gait not assessed, no focal sensorimotor deficits SKIN: Warm, Dry, normal turgor, no rashes or lesions noted. CBCD WBC 9.7 K/mm3 (4.0-10.0) D 06/02/17 15:20 RBC 4.97 M/mm3 (4.00-5.60) 06/02/17 15:20 Hgb 15.5 GM/dL (11.7-16.9) 06/02/17 15:20 Hct 46.2 % (35.4-49) 06/02/17 15:20 MCV 92.9 fl (80-96) 06/02/17 15:20 MCHC 33.6 g/dl (32.0-35.9) 06/02/17 15:20 RDW 13.0 % (11.9-15.9) 06/02/17 15:20 Plt Count 202 K/MM3 (134-434) D 06/02/17 15:20 MPV 7.3 fl (7.5-11.1) L 06/02/17 15:20 CMP Sodium 138 mmol/L (136-145) 06/02/17 15:20 Potassium 3.8 mmol/L (3.5-5.1) 06/02/17 15:20 Chloride 101 mmol/L (98-107) 06/02/17 15:20 Carbon Dioxide 24 mmol/L (21-32) 06/02/17 15:20 Anion Gap 13 (8-16) 06/02/17 15:20 BUN 15 mg/dL (7-18) 06/02/17 15:20 Creatinine 1.1 mg/dL (0.7-1.3) 06/02/17 15:20 Creat Clearance w eGFR > 60 (>60) 06/02/17 15:20 Calcium 8.5 mg/dL (8.5-10.1) 06/02/17 15:20 Total Bilirubin 0.7 mg/dL (0.2-1.0) 06/02/17 15:20 AST 19 U/L (15-37) 06/02/17 15:20 ALT 27 U/L (12-78) 06/02/17 15:20 Alkaline Phosphatase 97 U/L (45-117) 06/02/17 15:20 Total Protein 7.1 g/dl (6.4-8.2) 06/02/17 15:20 Albumin 4.1 g/dl (3.4-5.0) 06/02/17 15:[address] C spine reviewed Medical Decision Making 71 yo M with h/o HTN, IVDA, and methadone use ( 30+ ) years who arrives with syncopal event. Patient experienced episode of lightheadedness one hour [employer]. Reported sitting down and feeling nauseas with two episodes of non biliary, non bloody emesis, and diaphoresis prior to experiencing unwitnessed "fainting episode," with LOC. Daughter reports pt. falling through the table and foaming out the mouth, when his sister walked in the room and saw him laying on the floor. Does not recall duration of LOC. Reported waking up with cont'd nasuea. Was brought to the hospital and Utox showed only methadone. Etoh was negative. Being managed with Librium Would not start AED for one time event Methadone confirmation Monitor for withdrawal PNA mgmt Monitor lytes and infection Increased hydration Multivitamin, thiamine If event were to recur, then consider Keppra 750mg twice daily but would hold off for now
[2017-06-03] MEDS: PANTOPRAZOLE 40 MG TABLET (FP) PO SCH (10:17)
--- NOTE | 2017-06-03 10:32 | PN ---
Progress Note (short form) - Note Progress Note: ID Consult dictated 71 year old male admitted after apparent generalized seizure. CT chest multilobar pneumonia Probable aspiration pneumonia R/O sepsis secondary to pneumonia S/P Seizure Hx IDU on methadone Await c/s Empiric ceftriaxone Declines HIV testing
[2017-06-03] MEDS: VANCOMYCIN 1,250 MG in DEXTROSE 5%-WATER - 250 ML IVPB SCH ×2 (10:44→10:45)
[2017-06-03] MEDS: PIPERACIL/TAZOB 3.375 GM 3.375 GM/50 ML PREMIX IVPB SCH (10:44)
[2017-06-03] MEDS ORDERED: CEFTRIAXONE IN IS-OSM DEXTROSE 2 GM/50 ML BAG IVPB SCH (10:45)
[2017-06-03 11:18] VITALS: BP 150/83; PULSE 93; TEMP 98.3
--- NOTE | 2017-06-03 11:22 | CONS ---
INFECTIOUS DISEASE CONSULTATION DATE OF CONSULTATION: DATE OF DICTATION: 06/03/2017 REASON FOR CONSULTATION: The patient is a 71-year-old male with a remote history of injection drug use on methadone, evaluated for pneumonia. HISTORY OF PRESENT ILLNESS: History was obtained from the chart as he cannot give a history secondary to his lethargy. The patient was admitted after an apparent syncopal episode at home. According to the notes, he had been sitting down. He developed onset of diaphoresis, nausea, vomiting. He subsequently developed loss of consciousness. According to the notes, he was found on the floor by family members with foaming at the mouth. Daughter reports that patient had fallen and was foaming at the mouth and was noted to be lying on the floor. He woke up and was complaining of nausea. He was brought to the emergency room where he was evaluated. A CAT scan of the head was done and was negative for acute infarct or bleed. Urine toxicology screen was positive for methadone, for which the patient takes for history of opiate addiction in the past. The rest of the toxicology screen was negative. At the present time, he is awake but lethargic. He has no clear recall for recent events. He denies any pain. No complaints of any hip pain or head trauma. No chest pain, shortness of breath, cough, or sputum production. Denies any dyspnea. No complaints of recurrent nausea, vomiting, abdominal pain, diarrhea. No dysuria or hematuria. PAST MEDICAL HISTORY: Positive for hypertension, history of alcohol and substance use, former IV drug user on methadone. HIV status not documented. Patient states he tested negative in the past. ALLERGIES: No known allergies. MEDICATIONS: At home include methadone 50 mg daily. SOCIAL HISTORY: He lives at home with family members. Former smoker, stopped approximately 3 months ago. Prior to that, had smoked 1/2 pack per day for approximately 30 years. Positive history of alcohol use and intravenous drug use. Last used 3 years ago. SYSTEMS REVIEW: Neurologic: As per HPI. Cardiac: Negative chest pain or palpitations. Respiratory: Negative cough or sputum production. Gastrointestinal: Positive for nausea and vomiting. No diarrhea. Genitourinary: Negative for urinary tract infection. LABORATORY DATA: White count 9.7, hematocrit 46.2, platelet count 202. BUN 15, creatinine 1.1. Liver enzymes normal. Urinalysis negative. Lactic acid 3.2. Blood culture is pending. CAT scan of the chest: No pulmonary embolism. Right upper lobe, right lower lobe, and left upper lobe interstitial infiltrates. Nonspecific concentric wall thickening in the mid- and lower thirds of the thoracic esophagus. Cultures pending. PHYSICAL EXAMINATION: General: He is awake but lethargic. Vital Signs: His temperature 98.7; blood pressure 152/87; pulse 89, regular; respirations 20 per minute. HEENT: Sclerae are anicteric. Heart: Sounds S1, S2. Lungs: Poor inspiratory effort. No rhonchi, rales, or wheezing. Abdomen: Soft. No tenderness elicited. No mass, rebound, or rigidity. Extremities: Negative for edema. IMPRESSION: 1. New-onset seizures, unclear etiology. 2. Probable aspiration pneumonia. 3. History of opiate addiction on methadone. RECOMMENDATIONS: Await culture results; obtain sputum culture, urine legionella and pneumococcal antigens; empiric antibiotic coverage for probable aspiration pneumonia with ceftriaxone. Patient offered HIV testing. He declined. Thank you for the kind referral. BRIDGETT GANDHI M.D. [id number]
--- NOTE | 2017-06-03 12:10 | EKG ---
Test Reason : Blood Pressure : / mmHG Vent. Rate : 119 BPM Atrial Rate : 119 BPM P-R Int : 128 ms QRS Dur : 088 ms QT Int : 334 ms P-R-T Axes : 031 -02 029 degrees QTc Int : 469 ms SINUS TACHYCARDIA POSSIBLE LEFT ATRIAL ENLARGEMENT BORDERLINE ECG NO PREVIOUS ECGS AVAILABLE Confirmed by SAMRA LIM MD ([id number]) on 06/03/2017 12:09:49 PM Referred By: Confirmed By:SAMRA LIM MD
--- NOTE | 2017-06-03 13:49 | DS ---
Physical Exam: SUBJECTIVE: Patient seen and examined sitting on edge of bed. OBJECTIVE: Vital Signs Period Temp Pulse Resp BP Sys/Sun Pulse Ox Last 24 Hr 97.2 F-99.4 F 76-124 18-20 128-154/64-94 95-98 PHYSICAL EXAM GENERAL: The patient is awake, alert, and fully oriented, in no acute distress. Knows name, [place], May 2017, [place]. LUNGS: Breath sounds equal, clear to auscultation bilaterally, no wheezes, no crackles, no accessory muscle use. HEART: Regular rate and rhythm, S1, S2 ABDOMEN: Soft, nontender, nondistended, normoactive bowel sounds, no guarding, no rebound EXTREMITIES: 2+ pulses, warm, well-perfused, no edema. NEUROLOGICAL: Cranial nerves II through XII grossly intact. Normal speech, gait not observed but able to move all extremities freely, sitting on edge of bed. Laboratory Results - last 24 hr 06/02/17 06/02/17 06/02/17 15:06 15:06 15:15 WBC RBC Hgb Hct MCV MCH MCHC RDW Plt Count MPV Neutrophils % Lymphocytes % Monocytes % Eosinophils % Basophils % PT with INR INR D-Dimer 6681 H Sodium Potassium Chloride Carbon Dioxide Anion Gap BUN Creatinine Creat Clearance w eGFR POC Glucometer Random Glucose Lactic Acid Calcium Total Bilirubin AST ALT Alkaline Phosphatase Creatine Kinase Creatine Kinase Index CK-MB (CK-2) Troponin I Total Protein Albumin TSH Urine Color Straw Urine Appearance Clear Urine pH 5.0 D Ur Specific [place] 1.012 Urine Protein Negative Urine Glucose (UA) Negative Urine Ketones Negative Urine Blood 1+ H Urine Nitrite Negative Urine Bilirubin Negative Urine Urobilinogen Negative Ur Leukocyte Esterase Negative Urine WBC (Auto) None Urine RBC (Auto) 1 Hyaline Casts 3 Urine Mucus Rare Opiates Screen Negative Methadone Screen Positive Barbiturate Screen Negative Phencyclidine Screen Negative Ur Amphetamines Screen Negative MDMA (Ecstasy) Screen Negative Benzodiazepines Screen Negative Cocaine Screen Negative U Marijuana (THC) Screen Negative Alcohol, Quantitative Blood Type Antibody Screen 06/02/17 06/02/17 06/02/17 15:20 15:20 15:20 WBC 9.7 D RBC 4.97 Hgb 15.5 Hct 46.2 MCV 92.9 MCH 31.2 MCHC 33.6 RDW 13.0 Plt Count 202 D MPV 7.3 L Neutrophils % 89.4 H Lymphocytes % 3.5 L Monocytes % 6.4 Eosinophils % 0.4 Basophils % 0.3 PT with INR 11.50 INR 1.02 D-Dimer Sodium 138 Potassium 3.8 Chloride 101 Carbon Dioxide 24 Anion Gap 13 BUN 15 Creatinine 1.1 Creat Clearance w eGFR > 60 POC Glucometer Random Glucose 116 H Lactic Acid Calcium 8.5 Total Bilirubin 0.7 AST 19 ALT 27 Alkaline Phosphatase 97 Creatine Kinase 217 Creatine Kinase Index 1.2 CK-MB (CK-2) 2.657 Troponin I 0.04 Total Protein 7.1 Albumin 4.1 TSH 0.84 Urine Color Urine Appearance Urine pH Ur Specific [place] Urine Protein Urine Glucose (UA) Urine Ketones Urine Blood Urine Nitrite Urine Bilirubin Urine Urobilinogen Ur Leukocyte Esterase Urine WBC (Auto) Urine RBC (Auto) Hyaline Casts Urine Mucus Opiates Screen Methadone Screen Barbiturate Screen Phencyclidine Screen Ur Amphetamines Screen MDMA (Ecstasy) Screen Benzodiazepines Screen Cocaine Screen U Marijuana (THC) Screen Alcohol, Quantitative Blood Type Antibody Screen 06/02/17 06/02/17 06/02/17 16:25 17:30 22:19 WBC RBC Hgb Hct MCV MCH MCHC RDW Plt Count MPV Neutrophils % Lymphocytes % Monocytes % Eosinophils % Basophils % PT with INR INR D-Dimer Sodium Potassium Chloride Carbon Dioxide Anion Gap BUN Creatinine Creat Clearance w eGFR POC Glucometer Random Glucose Lactic Acid 3.2 H* 1.4 Calcium Total Bilirubin AST ALT Alkaline Phosphatase Creatine Kinase Creatine Kinase Index CK-MB (CK-2) Troponin I Total Protein Albumin TSH Urine Color Urine Appearance Urine pH Ur Specific [place] Urine Protein Urine Glucose (UA) Urine Ketones Urine Blood Urine Nitrite Urine Bilirubin Urine Urobilinogen Ur Leukocyte Esterase Urine WBC (Auto) Urine RBC (Auto) Hyaline Casts Urine Mucus Opiates Screen Methadone Screen Barbiturate Screen Phencyclidine Screen Ur Amphetamines Screen MDMA (Ecstasy) Screen Benzodiazepines Screen Cocaine Screen U Marijuana (THC) Screen Alcohol, Quantitative < 5.0 Blood Type Antibody Screen HOSPITAL COURSE: Date of Admission:06/02/17 Date of AMA: 06/03/17 71 year-old male with a PMH significant for HTN, IVDA, and methadone dependency x 30 years who presented to the ED for evaluation for a syncopal episode that occurred one hour prior to arrival. Patient reported sitting down and feeling nauseous with two episodes of non biliary, non bloody emesis. He was also diaphoretic. He then lost consciousness. Patient's sister found patient on the floor "foaming at the mouth." On arrival to ED, patient was tachycardic to 116 with pinpoint pupils. About 45 minutes after arrival, tonic-clonic seizure activity was observed lasting more than 5 minutes. Ativan 1mg x 1 was administered and the seizure aborted. At the time of admission, patient's family was not present to provide history and this information is taken from the chart. Patient adamantly denies alcohol use or IV drug use for the past three years. ER course was notable for: (1) CT head: no acute pathology (2) Ativan 1mg x 2; NS 1L x 2; levofloxacin 750mg x 1 (risk of aspiration pneumonia) Hospital course by problem list Seizure --witnessed tonic-clonic activty in ED --unclear if this is a seizure provoked by alcohol or drug use; serum alcohol level is negative and utox is positive only for methadone; patient denies alcohol or IVDU for past 3 years; this may be a first-time seizure --seen and evaluated by neuro: no indication for AED for one time event; if recurs, consider Keppra 750mg BID --ativan PRN IV heroin abuse Methadone dependency --unable to verify methadone provider or dose Alcohol abuse --patient refused librium Multilobar pneumonia --infiltrates seen on CT --possible aspiration --vanc, zosyn given empirically Dispo: signed out AMA Minutes to complete discharge: 35 Discharge Summary Reason For Visit: SEIZURE Current Active Problems Seizure (Acute) Condition: Guarded - Instructions Disposition: AGAINST MEDICAL ADVICE - Home Medications Comprehensive Discharge Medication List: Ambulatory Orders Methadone [Dolophine -] 50 mg PO DAILY 04/14/16 This patient is new to me today: Yes Date on this admission: 06/03/17 Emergency Visit: Yes ED Registration Date: 06/02/17 Care time: The patient presented to the Emergency Department on the above date and was hospitalized for further evaluation of their emergent condition. Critical Care patient: No - Discharge Referral Referred to [facility] No
[2017-06-03] MEDS ORDERED: chlordiazePOXIDE HCL 25 MG CAPSULE PO SCH (23:00)
[2017-06-04] MEDS ORDERED: chlordiazePOXIDE 5 MG CAPSULE PO SCH (23:00)
== END 2017-06-03 14:43 | disposition left against medical advice (07) | DRG 100 ==
LOC: JER 14:10 → JERBED 19:25 → J7W 06-03 04:34
PROVIDERS: ADMIT Internal Medicine; ATTEND Nurse Practitioner Acute Care
PROC: HZ2ZZZZ Detoxification Services for Substance Abuse Treatment (ICD-10-PCS; principal; 2017-06-03)
DX: G40.409 Other generalized epilepsy and epileptic syndromes, not intractable, without status epilepticus (principal); J18.9 Pneumonia, unspecified organism; F11.20 Opioid dependence, uncomplicated; I10 Essential (primary) hypertension; F17.210 Nicotine dependence, cigarettes, uncomplicated; F10.20 Alcohol dependence, uncomplicated
CPT/HCPCS: 36415; 70450-TC; 71045-TC; 71275-TC; 72125-TC; 80053; 80307; 81003; 81015; 82550; 82553; 82962; 83605; 84443; 84484; 85025; 85379; 85610; 86850; 86900; 86901; 87040; 93005; 93010; 99284-25